=== PATIENT | female | born 1965 | race Caucasian/White ===

== ENCOUNTER 2016-09-01 20:55 | Inpatient (IN) | payer MEDICARE ==
[~2016-09-01] VITALS: Ht 165.1 cm; Wt 92.1 kg
[2016-09-01] MEDS ORDERED: SENSIPAR30 MG PO (23:46)
[2016-09-01] MEDS ORDERED: PROZAC40 MG PO (23:46)
[2016-09-01] MEDS ORDERED: GABAPENTIN300 MG PO (23:46)
[2016-09-01] MEDS ORDERED: PRILOSEC OTC20 MG PO (23:46)
[2016-09-01] MEDS ORDERED: LOPRESSOR50 MG PO (23:47)
[2016-09-01] MEDS ORDERED: LIPITOR TAB 2020 MG PO (23:47)
[2016-09-01] MEDS ORDERED: CATAPRES 0.1MG0.1 MG PO (23:47)
[2016-09-01] MEDS ORDERED: LANTUS100 UNIT/1 SQ (23:48)
[2016-09-01] MEDS ORDERED: NOVOLOG MI100 UNIT/2 SQ (23:49)
[2016-09-02 02:19] LABS: HEMOGLOBIN 8.4 gm/dl (12.3-15.3); RED BLOOD COUNT 2.66 M/UL (4.00-5.10); WHITE BLOOD COUNT 7.8 K/UL (4.5-11.0)
[2016-09-02 07:09] LABS: HEMOGLOBIN 8.1 gm/dl (12.3-15.3); RED BLOOD COUNT 2.56 M/UL (4.00-5.10); WHITE BLOOD COUNT 7.7 K/UL (4.5-11.0)
[2016-09-03 05:22] LABS: HEMOGLOBIN 7.8 gm/dl (12.3-15.3); RED BLOOD COUNT 2.47 M/UL (4.00-5.10); WHITE BLOOD COUNT 9.6 K/UL (4.5-11.0)
== END 2016-09-03 16:25 | disposition home or self-care (01) | DRG 640 ==
LOC: M/S 23:24
PROVIDERS: Internal Medicine Nephrology; ADMIT Internal Medicine
PROC: 5A1D60Z (ICD-10-PCS; principal; 2016-09-02)
DX: E87.70 Fluid overload, unspecified (principal); N18.6 End stage renal disease; N17.9 Acute kidney failure, unspecified; I12.0 Hypertensive chronic kidney disease with stage 5 chronic kidney disease or end stage renal disease; J91.8 Pleural effusion in other conditions classified elsewhere; E11.22 Type 2 diabetes mellitus with diabetic chronic kidney disease; Z79.4 Long term (current) use of insulin; Z99.2 Dependence on renal dialysis; E83.42 Hypomagnesemia; D64.9 Anemia, unspecified
CPT/HCPCS: 36415; 71010; 80048; 80053; 80202; 81001; 82962; 83735; 83880; 84100; 84439; 84443; 85025; 85027; 87040; 90935; 90937; G0257; G0378; G0379; J0713; J2405; J3370; J7030; J7040; J7050; J7070; Q4081; Q9963